=== PATIENT | male | born 2000 | race Two or more races ===

== ENCOUNTER 2024-06-06 20:50 | Emergency (ER) | payer MEDICAID, SELFPAY ==
[2024-06-06 22:14] VITALS: BP 146/93; PULSE 76; RESP 20; TEMP 36.8; O2SAT 99; BMI 31.1
--- NOTE | 2024-06-07 04:17 | EDNOTE_ITS ---
ED General RME/HPI General Chief complaint: General Adult/Misc Complain Stated complaint: NEED BLOOD PRESSURE CHECK Time Seen by Provider: 06/06/24 22:29 Arrival date/time: 06/06/24 20:50 23M with no significant PMH presents to ED wanting to get his blood pressure checked. Patient has no complaints. Limitations: no limitations Related Data Previous Rx's ?Medication ?Instructions ?Recorded acetaminophen 500 mg tablet 1,000 mg (2 x 500 mg) PO Q ID PRN 05/22/22 (Tylenol Extra Strength) fever or pain #30 tabs Allergies Allergy/AdvReac Type Severity Reaction Status Date / Time No Known Allergies Allergy Verified 03/05/22 12:47 Review of Systems Review of Systems Systems Reviewed: All systems reviewed, normal except as documented Constitutional Constitutional: Reports system reviewed and no additional complaints, except as documented, Denies fever(s) and Denies headache(s) ENT Ears, Nose, Mouth, and Throat: Denies disequilibrium and Denies headache(s) Cardiovascular Cardiovascular: Reports system reviewed and no additional complaints, except as documented, Denies chest pain and Denies dyspnea Respiratory Respiratory: Reports system reviewed and no additional complaints, except as documented, Denies cough and Denies dyspnea Gastrointestinal Gastrointestinal: Reports system reviewed and no additional complaints, except as documented, Denies abdominal pain, Denies nausea and Denies vomiting Neurologic Neurologic: Reports system reviewed and no additional complaints, except as documented, Denies confusion, Denies disequilibrium and Denies headache(s) Psychiatric Psychiatric: Denies confusion Past Medical History Past Medical History CARDIAC: Negative Congestive Heart Failure RESPIRATORY: Negative Chronic Obstructive Pulmonary Disease (COPD) GENITOURINARY: Negative Renal Disease ENDOCRINE: Negative Diabetes Mellitus Type 1 or Diabetes Mellitus Type 2 Social History SMOKING STATUS: Current some day smoker ED Exam General Limitations: Present no limitations General appearance: Present alert and in no apparent distress Head Head exam: Present atraumatic Eye Eye exam: Present normal appearance, PERRL and EOMI ENT ENT exam: Present normal exam, normal oropharynx and mucous membranes moist Neck Neck exam: Present normal inspection, full ROM and trachea midline Chest Chest inspection: Present normal inspection and symmetric chest wall rise Respiratory Respiratory exam: Present normal lung sounds bilaterally Cardiovascular Cardiovascular exam: Present regular rate, normal rhythm and normal heart sounds Abdominal Exam Abdominal exam: Present soft and normal bowel sounds Extremities Exam Extremities exam: Present normal inspection and full ROM Back Exam Back exam: Present normal inspection and full ROM Neurological Exam Neurological exam: Present alert, oriented X3 and CN II-XII intact Psychiatric Psychiatric exam: Present normal affect and normal mood Skin Skin exam: Present warm, dry, intact and normal color Course Course Course Narrative: 23M with no significant PMH presents to ED wanting to get his blood pressure checked. Patient has no complaints. Physical exam reveals clear lungs. RRR. Patient is afebrile, calm, and alert. BP mildly elevated. Store Administrative Assistant given. Quality Measures none Vital Signs Vital signs: Vital Signs Temperature 98.2 F 06/06/24 22:14 Pulse Rate 76 06/06/24 22:14 Respiratory Rate 20 06/06/24 22:14 Blood Pressure 146/93 H 06/06/24 22:14 Pulse Oximetry (%) 99 06/06/24 22:14 Oxygen Delivery Method Room Air 06/06/24 22:14 O2 at 99% on RA and WNLs MDM Patient data External records reviewed:: [facility] previous records Clinical information provided by:: patient Social determinants that could affect healthcare access:: none Patient has the following chronic illnesses:: none How is presenting disease/condition affected by chronic disease/condition?: no chronic disease Evaluation data The following diagnostics were reviewed and interpreted by me:: other (specify) (none) Lab and/or radiology exams considered but not ordered:: not ordered Interpretation Summary: n/a Medications Medications considered but not ordered:: not ordered Medication administrations:: n/a Consultations Consultation(s) initiated? (list below): No Diagnosis Differential Diagnosis ED Complaint MDM: health screening, drug use, elevated BP w/o diagnosis of HTN Most likely diagnosis given after review of the tests above:: elevated BP w/o diagnosis of HTN Admission Indicated Admission indicated?: not indicated Explain why admission is indicated or not indicated:: outpatient Admission Request Was there a request for admission?: No Disposition Plan Disposition Plan: Discharge Discharge Attestation Discharge Attestation: The patient and all family members were given an opportunity to ask questions and understood the discharge instructions. Discharge instructions specifically effects, indications for sooner follow up or return to the emergency department, and the expected course of current diagnosis. Patient condition: Stable Medical Decision Making Differential Diagnosis Differential Diagnosis: health screening, drug use, elevated BP w/o diagnosis of HTN Discharge Plan Plan Patient Disposition: HOME (Self Care) Disposition Comment: STable Prescriptions/Referrals Prescriptions/Med Rec: No Action acetaminophen [Tylenol Extra Strength] 500 mg tablet 1,000 mg PO QID PRN (Reason: fever or pain) Qty: 30 0RF Referrals: No Primary/Family,Physician [Primary Care Provider] - In 1 week Problem List Clinical Impression: Elevated BP without diagnosis of hypertension Patient/Caregiver Discharge Instructions Additional Instructions: Please follow-up with PCP within 24-48 hours and return immediately if symptoms worsen. Print Language: Indonesian Stand Alone Forms: Patient Portal Info Letter PA/ADVANCED PRACTICE PROVIDER Supervising Physician DAKOTA/KERA Supervising Physician: Dr. Ravi
== END 2024-06-06 22:40 | disposition home or self-care (01) ==
PROVIDERS: Emergency Provider Emergency Medicine
DX: R03.0 Elevated blood-pressure reading, without diagnosis of hypertension (principal)
CPT/HCPCS: 99281

== ENCOUNTER 2024-06-07 21:10 | Emergency (ER) | payer MEDICAID, SELFPAY ==
[2024-06-07 21:39] VITALS: BP 152/89; PULSE 83; RESP 18; TEMP 36.4; O2SAT 98; BMI 31.2
--- NOTE | 2024-06-08 01:10 | EDNOTE_ITS ---
Upper Respiratory Inf. RME/HPI General Chief Complaint: General Adult/Misc Complain Stated Complaint: WANTS TO BE CHECKED BY DOCTOR Time Seen by Provider: 06/07/24 22:07 Arrival date/time: 06/07/24 21:10 23M with no significant PMH presents to ED with 1 day of cough. Limitations: no limitations Related Data Previous Rx's ?Medication ?Instructions ?Recorded acetaminophen 500 mg tablet 1,000 mg (2 x 500 mg) PO Q ID PRN 05/22/22 (Tylenol Extra Strength) fever or pain #30 tabs Allergies Allergy/AdvReac Type Severity Reaction Status Date / Time No Known Allergies Allergy Verified 03/05/22 12:47 Review of Systems Review of Systems Systems Reviewed: All systems reviewed, normal except as documented Constitutional Constitutional: Reports system reviewed and no additional complaints, except as documented, Denies fever(s) and Denies headache(s) ENT Ears, Nose, Mouth, and Throat: Denies disequilibrium and Denies headache(s) Cardiovascular Cardiovascular: Reports system reviewed and no additional complaints, except as documented, Denies chest pain and Denies dyspnea Respiratory Respiratory: Reports system reviewed and no additional complaints, except as documented, Reports as per HPI, Reports cough and Denies dyspnea Gastrointestinal Gastrointestinal: Reports system reviewed and no additional complaints, except as documented, Denies abdominal pain, Denies nausea and Denies vomiting Neurologic Neurologic: Reports system reviewed and no additional complaints, except as documented, Denies confusion, Denies disequilibrium and Denies headache(s) Psychiatric Psychiatric: Denies confusion Past Medical History Past Medical History CARDIAC: Negative Congestive Heart Failure RESPIRATORY: Negative Chronic Obstructive Pulmonary Disease (COPD) GENITOURINARY: Negative Renal Disease ENDOCRINE: Negative Diabetes Mellitus Type 1 or Diabetes Mellitus Type 2 Social History SMOKING STATUS: Current some day smoker ED Exam General Limitations: Present no limitations General appearance: Present alert and in no apparent distress Head Head exam: Present atraumatic Eye Eye exam: Present normal appearance, PERRL and EOMI ENT ENT exam: Present normal exam, normal oropharynx and mucous membranes moist Neck Neck exam: Present normal inspection, full ROM and trachea midline Chest Chest inspection: Present normal inspection and symmetric chest wall rise Respiratory Respiratory exam: Present normal lung sounds bilaterally Cardiovascular Cardiovascular exam: Present regular rate, normal rhythm and normal heart sounds Abdominal Exam Abdominal exam: Present soft and normal bowel sounds Extremities Exam Extremities exam: Present normal inspection and full ROM Back Exam Back exam: Present normal inspection and full ROM Neurological Exam Neurological exam: Present alert, oriented X3 and CN II-XII intact Psychiatric Psychiatric exam: Present normal affect and normal mood Skin Skin exam: Present warm, dry, intact and normal color Course Quality Measures none Orders Category Date Time Status Bedside Influenza A&B Antigen Test NOW Care 06/07/24 21:15 Completed Vital Signs Vital signs: Vital Signs Temperature 97.6 F 06/07/24 21:39 Pulse Rate 83 06/07/24 21:39 Respiratory Rate 18 06/07/24 21:39 Blood Pressure 152/89 H 06/07/24 21:39 Pulse Oximetry (%) 98 06/07/24 21:39 Oxygen Delivery Method Room Air 06/07/24 21:39 O2 at 98% on RA and WNLs Upper Respiratory Infection MDM Narrative MDM Narrative:: 23M with no significant PMH presents to ED with 1 day of cough. Physical exam reveals clear ENT and lungs. Patient is afebrile, calm, and alert. Flu A+. Patient data External records reviewed:: [facility] previous records Clinical information provided by:: patient Social determinants that could affect healthcare access:: none Patient has the following chronic illnesses:: none How is presenting disease/condition affected by chronic disease/condition?: no chronic disease Evaluation data The following diagnostics were reviewed and interpreted by me:: lab results Lab and/or radiology exams considered but not ordered:: ordered Interpretation Summary: above Medications / Prescriptions Medications or Prescriptions considered but not ordered:: not ordered Medication administrations:: n/a Consultations Consultation(s) initiated? (list below): No Diagnosis Upper Respiratory Differential Diagnosis: upper respiratory infection, croup, otitis media, sinusitis, viral infection, bronchitis, influenza and pharyngitis Most likely diagnosis given after review of the tests above:: flu A Admission Indicated Admission indicated?: not indicated Admission Request Was there a request for admission?: No Disposition Plan Disposition Plan: Discharge Discharge Attestation Discharge Attestation: The patient and all family members were given an opportunity to ask questions and understood the discharge instructions. Discharge instructions specifically effects, indications for sooner follow up or return to the emergency department, and the expected course of current diagnosis. Patient condition: Stable Discharge Plan Plan Patient Disposition: HOME (Self Care) Disposition Comment: Stable Prescriptions/Referrals Prescriptions/Med Rec: No Action acetaminophen [Tylenol Extra Strength] 500 mg tablet 1,000 mg PO QID PRN (Reason: fever or pain) Qty: 30 0RF Referrals: No Primary/Family,Physician [Primary Care Provider] - In 1 week Problem List Clinical Impression: Influenza A Patient/Caregiver Discharge Instructions Education Materials: ED Influenza (Adult) Additional Instructions: Please follow-up with PCP within 24-48 hours and return immediately if symptoms worsen. Ibuprofen/Tylenol can be used simultaneously for greater fever/pain control. Benadryl is good for cough, congestion, and sleep. Print Language: Cymraes Stand Alone Forms: Patient Portal Info Letter PA/RESIDENTIAL BUILDER Supervising Physician PA/RESIDENTIAL BUILDER Supervising Physician: Dr. Ayers
== END 2024-06-07 22:56 | disposition home or self-care (01) ==
PROVIDERS: Emergency Provider Emergency Medicine
DX: J10.1 Influenza due to other identified influenza virus with other respiratory manifestations (principal); F17.200 Nicotine dependence, unspecified, uncomplicated
CPT/HCPCS: 87400; 99283

== ENCOUNTER 2024-06-09 19:05 | Emergency (ER) | payer MEDICAID, SELFPAY ==
[2024-06-09 19:11] VITALS: PULSE 85; RESP 19; O2SAT 99
[2024-06-09 19:17] VITALS: BP 161/96; PULSE 93; RESP 19; TEMP 36.8; O2SAT 100; BMI 27.1
--- NOTE | 2024-06-09 19:20 | EDNOTE_ITS ---
ED Psych RME/HPI General Chief Complaint: Psychiatric Symptoms Stated Complaint: PSYCH EVAL Time Seen by Provider: 06/09/24 19:20 Arrival date/time: 06/09/24 19:05 RME / HPI RME / HPI Narrative: This section includes all my notes and documentations, including HPI, PE, and ED course. David Ayers MD HPI: 23-year-old male here seeking mental evaluation. Has history of schizophrenia. Noncompliant with treatment. Was found wandering the streets. called EMS who brought the patient here. When asked with questions, patient doesn't give answers to most questions. He mainly stares at you and elsewhere. He reported to thoughts of hurting himself. He denied thoughts of hurting others. He reported auditory hallucinations. No other obvious complaints. ROS: All negative except as documented in HPI. Physical Exam: General: Alert. Flat affect noted. Eyes: Conjunctivae and lids clear. EOMI. PERRL. ENT: No nasal congestion. Neck: Supple. Heart: RRR. Lungs: No respiratory distress. Good air movement. No rhonchi, wheezing, rales. Abdomen: Soft and nontender. Skin: Warm and dry. Neuro: Alert and oriented X 1. Cranial Nerves II-XII grossly intact. No peripheral motor deficits. Musculoskeletal: All major joints and bones are not tender with no limited ROM. Blood tests and urine tests unremarkable. At this point, diagnoses include psychosis and suicidal ideation. Patient is medically cleared for psychiatric evaluation and treatment. At 6 AM on 06/10/2024, the care of the patient was transferred to Dr Hodgson. David Ayers MD Related Data Previous Rx's ?Medication ?Instructions ?Recorded acetaminophen 500 mg tablet 1,000 mg (2 x 500 mg) PO Q ID PRN 05/22/22 (Tylenol Extra Strength) fever or pain #30 tabs Allergies Allergy/AdvReac Type Severity Reaction Status Date / Time No Known Allergies Allergy Verified 03/05/22 12:47 Course Quality Measures none Orders Category Date Time Status 1799 Psychiatric Hold NOW Care 06/09/24 19:30 Ordered Acetaminophen Stat Lab 06/09/24 20:14 Completed Alcohol, Blood Medical Stat Lab 06/09/24 20:14 Completed CBC Stat Lab 06/09/24 20:14 Completed CMP [Comprehensive Metabolic Panel] Stat Lab 06/09/24 20:14 Completed Drug Screen,Urine Stat Lab 06/09/24 19:44 Completed Magnesium Stat Lab 06/09/24 20:14 Completed Salicylate Stat Lab 06/09/24 20:14 Completed TSH [Thyroid Stimulating Hormone] Stat Lab 06/09/24 20:14 Completed Referral Guest Relations Manager NOW 06/09/24 19:20 Active Vital Signs Vital signs: Vital Signs Temperature 98.3 F 06/09/24 19:17 Pulse Rate 93 06/09/24 19:17 Respiratory Rate 19 06/09/24 19:17 Blood Pressure 161/96 H 06/09/24 19:17 Pulse Oximetry (%) 100 06/09/24 19:17 Oxygen Delivery Method Room Air 06/09/24 19:17 Psych Patient data External records reviewed:: [facility] previous records Clinical information provided by:: patient and EMS Social determinants that could affect healthcare access:: mental health Patient has the following chronic illnesses:: Schizophrenia How is presenting disease/condition affected by chronic disease/condition?: exacerbated by Evaluation data The following diagnostics were reviewed and interpreted by me:: lab results Lab and/or radiology exams considered but not ordered:: None Interpretation Summary: Normal lab tests Medications / Prescriptions Medications or Prescriptions considered but not ordered:: None Medication administrations:: None Consultations Consultation(s) initiated? (list below): Yes Consultation #1 (Physician, Specialty, Details): Entered order for evaluation by our ED skin care technician. Diagnosis Psych Differential Diagnosis: acute psychosis, chronic schizophrenia, suicidal ideation, bipolar disorder, depression, drug-induced psychotic disorder and acute anxiety Most likely diagnosis given after review of the tests above:: Psychosis and suicidal ideation Admission Indicated Admission indicated?: not indicated Explain why admission is indicated or not indicated:: No psychiatric service here. Admission Request Was there a request for admission?: No Disposition Plan Disposition Plan: other (specify) (Care of the patient was transferred to Dr. Hodgson. ) Discharge Plan Prescriptions/Referrals Prescriptions/Med Rec: No Action acetaminophen [Tylenol Extra Strength] 500 mg tablet 1,000 mg PO QID PRN (Reason: fever or pain) Qty: 30 0RF Referrals: No Primary/Family,Physician [Primary Care Provider] - In 1 week Problem List Clinical Impression: Acute psychosis, Suicidal ideation Patient/Caregiver Discharge Instructions Print Language: Vietnamese
[2024-06-09 20:27] LABS: Basophils # (Auto) 0.1 Thou/mm3 (0.0-0.2); Basophils % (Auto) 1 % (0-2.5); Eosinophils # (Auto) 0.4 Thou/mm3 (0.0-0.5); Eosinophils % (Auto) 3 % (0-10); Hematocrit 37.5 % (41.0-53.0); Hemoglobin 12.5 g/dL (13.5-16.0); Immature Granulocytes % (Auto) 0 % (0-0); Immature Granulocytes Auto 0.03 Thou/mm3 (0.00-0.00); Lymphocytes # (Auto) 2.2 Thou/mm3 (1.0-4.8); Lymphocytes % (Auto) 19 % (10-50); Mean Corpuscular HGB Conc 33.3 g/dl (31.0-37.0); Mean Corpuscular Hemoglobin 26.9 pg (25.0-35.0); Mean Corpuscular Volume 81 fL (80-100); Monocytes # (Auto) 1.1 Thou/mm3 (0.0-0.8); Monocytes % (Auto) 10 % (0-12); Neutrophils # (Auto) 7.6 Thou/mm3 (1.8-7.7); Neutrophils % (Auto) 67 % (37-80); Nucleated Red Blood Cell % 0 /100 WBC (0); Platelet Count 368 Thou/mm3 (140-440); RDW Standard Deviation 39.4 fL (35.1-43.9); Red Blood Count 4.65 Miln/mm3 (4.50-5.90); White Blood Count 11.3 Thou/mm3 (3.8-10.6)
[2024-06-09 20:44] LABS: Amphetamine/Methamp Scrn,U Negative (Negative); Barbiturate Screen,Urine Negative (Negative); Benzodiazepines Screen,Urine Negative (Negative); Benzoylecgonine Screen, Ur Negative (Negative); Fentanyl Screen,Urine Negative (Negative); Opiate Screen,Urine Negative (Negative); THC Screen,Urine Negative (Negative)
[2024-06-09 20:59] LABS: Acetaminophen < 2.0 mcg/mL (10.0-20.0); Alanine Aminotransferase 21 U/L (10-49); Albumin, Serum 4.1 gm/dL (3.5-5.0); Albumin/Globulin Ratio 1.6 (1.2-2.2); Alcohol, Blood Medical < 3.0 mg/dL (0-10.0); Alkaline Phosphatase 61 U/L (46-116); Anion Gap 8 (7-16); Aspartate Amino Transferase 23 U/L (0-34); BUN/Creatinine Ratio 19 Ratio (12-20); Bilirubin,Total 0.4 mg/dL (0.3-1.2); Blood Urea Nitrogen 19 mg/dL (9-23); Calcium 9.6 mg/dL (8.3-10.6); Calcium (Corrected) 9.6 mg/dL (8.5-10.1); Carbon Dioxide 29.8 mMol/L (20.0-31.0); Chloride 105 mMol/L (98-107); Estimated Creatinine Clearance 126.1 mL/min (>60); Globulin 2.6 gm/dL (2.3-3.5); Glucose 94 mg/dL (74-106); Osmolality,Calculated 287 (275-295); Potassium 3.9 mMol/L (3.4-5.1); Salicylate < 3.0 mg/dL; Sodium 143 mMol/L (136-145); Thyroid Stimulating Hormone 0.78 uIU/mL (0.55-4.78); Total Protein 6.7 gm/dL (5.7-8.2); eGFR > 60 See Note
[2024-06-09 22:55] VITALS: BP 125/76; PULSE 64; RESP 17; TEMP 37; O2SAT 97
--- NOTE | 2024-06-10 05:53 | PD.EDADDENDU ---
Emergency Room Addendum <Sayda Billings - Last Filed: 06/10/24 12:22> Addendum Narrative: 0600: Care assumed from Dr. Ayers, the previous shift emergency physician. Past medical, surgical, social and family history reviewed. Vitals and home medications reviewed. I will assume the care of the patient at this time. Please refer to the emergency department record for history and examination from initial visit.? Physical exam by me shows patient under no acute distress at this time. Patient slept comfortably throughout the night is waiting for mental health evaluation. Per sign out the patient has history of schizophrenia and suicidal thoughts and was not taking medications. Previous doctor 1799 held and medically cleared the patient. Labs were reviewed and essentially are negative. The patient was placed in ED observation care at 06/10/2024 at 0600 hours. The patient was placed in ED observation care because of undifferentiated decompensated behavioral health evaluation, no behavioral health bed available. The patients past medical history, social history, and family history were reviewed. The plan of care will include serial examinations. While in ED observation the patient will have access to water, food, and personal hygiene. If the patient takes home medication(s), they will be continued in ED observation. 0738: Upon mental health evaluation, patient will be placed on a 5150-hold for [facility]. Patient's 1799 will be credited. Plan is for LPS Facility placement. 1040: Patient has been accepted to [facility]. ETA is 1200 hours. 1210: EMS here to transport the patient to [facility]. ED observation ended care at 06/10/2024 at 1210 hours. <Blaise Hodgson MD - Last Filed: 06/10/24 14:05> Addendum Narrative: 0600: Care assumed from Dr. Ayers, the previous shift emergency physician. Past medical, surgical, social and family history reviewed. Vitals and home medications reviewed. I will assume the care of the patient at this time. Please refer to the emergency department record for history and examination from initial visit.? Physical exam by me shows patient under no acute distress at this time. Patient slept comfortably throughout the night is waiting for mental health evaluation. Per signout the patient has history of schizophrenia and suicidal thoughts and was not taking medications. Previous doctor 1799 held and medically cleared the patient. Labs were reviewed and essentially are negative.
[2024-06-10 06:11] VITALS: BP 146/75; PULSE 74; RESP 18; TEMP 37.7; O2SAT 98
--- NOTE | 2024-06-10 07:40 | PC.CC ---
Addendum entered by Luisa Prescott 06/10/24 08:36: Patient was provided with Advisement of 5150-Hold and placement to psychiatric facility. Original Note: Patient is a 23 year-old male BIBA for mental health evaluation after being found wandering the streets. ASW, Luisa made face to face contact with patient introduced self, role, and reason to patient. Patient presented unkempt and disheveled with dirty all over his feet. Patient appeared to be alert to self and location. However, patient appeared to be responding to internal stimuli. Patient is a poor historian. Patient reports that the police dropped him off on the streets yesterday but unable to articulate the reason he was dropped off. Patient reports to having auditory and visual hallucinations. ASW explored with patient what he hears and sees. Patient stated, I hear and see a bunch of random stuff. Per patient, he was diagnosed with Schizophrenia but unable to provide who diagnosed him and when he was diagnosed. Patient reports he use to take medication but has stopped and only able to provide that he was taking Gabapentin as he does not remember the name of the other medications. Patient does not know if he is connected to outpatient mental health services. Patient was placed on a 5150-hold a while ago. Patient stated, I was trying to go to the mental health hospital to get help for my mental health. Patient reports he was in foster care and there is no one to contact for collateral information. Upon clinical consultation with [facility], [facility] patient will be placed on a 5150-hold for [facility]. Patient's 1798 will be credited. ASW provided update of discharge plan to [facility] Facility to Dr. Hodgson and college hire Betty. ASW to send referral packet to [facility] facilities via [facility].
[2024-06-10 08:34] VITALS: BP 124/70; PULSE 89; RESP 18; TEMP 37.3; O2SAT 98
--- NOTE | 2024-06-10 09:02 | PC.NURSE ---
kadeem called from [facility] for follow up report on pt condition
--- NOTE | 2024-06-10 09:15 | PC.NURSE ---
--Spoke with Pranay from [facility] with accepting info. Dr. Brewster accepted, can go anytime, nurse to nurse report [phone], will fax covid resutls to [phone].
--- NOTE | 2024-06-10 09:37 | PC.CC ---
PAtient was accepted to [facility], Dr. Brewster. Pranay provided accepting information. ASW to arrange transportation. ASW provided accepting information to patient. Dr. Hodgson, ROSELIA Sutherland were made aware of discharge plan to [facility] facility in [place].
[2024-06-10 10:32] VITALS: BP 124/69; PULSE 94; RESP 16; TEMP 37.2; O2SAT 99
[2024-06-10 11:58] VITALS: BP 151/90; PULSE 72; RESP 17; TEMP 36.7; O2SAT 96
[2024-06-10 11:59] VITALS: BP 151/90; PULSE 67; RESP 16; TEMP 36.7; O2SAT 96
--- NOTE | 2024-06-10 12:11 | PC.NURSE ---
REPORT GIVEN TO SUE VELOZ AT [facility] AT THIS TIME, BEDSIDE REPORT GIVEN TO EMS.
== END 2024-06-10 12:23 ==
PROVIDERS: Emergency Medicine; Emergency Provider Emergency Medicine
DX: R45.851 Suicidal ideations (principal); F20.9 Schizophrenia, unspecified
CPT/HCPCS: 36415; 80053; 80307; 80320; 80329; 83735; 84443; 85025; 87811; 90839; 96127; 99285; G0480

== ENCOUNTER 2024-09-18 18:50 | Emergency (ER) | payer MEDICAID, SELFPAY ==
[2024-09-18 20:00] VITALS: BP 122/82; PULSE 100; RESP 20; TEMP 36.9; O2SAT 96
--- NOTE | 2024-09-18 20:23 | PD.EDRME ---
Rapid Medical Screening Exam RME Arrival date/time: 09/18/24 18:50 23M with history of psych presents to ED wanting to talk to crisis. Patient denies SI/HI. Patient states he doesn't feel good after taking some unknown med. Chief Complaint: General Adult/Misc Complain Vital signs: Vital Signs Temperature 98.4 F 09/18/24 20:00 Pulse Rate 100 09/18/24 20:00 Respiratory Rate 20 09/18/24 20:00 Blood Pressure 122/82 09/18/24 20:00 Pulse Oximetry (%) 96 09/18/24 20:00 Oxygen Delivery Method Room Air 09/18/24 20:00
--- NOTE | 2024-09-18 20:29 | PC.NURSE ---
AFTER SEEN BY PROVIDER AND REGISTRATION PT TOOK OFF ER.
== END 2024-09-18 20:30 | disposition left against medical advice (07) ==
PROVIDERS: Emergency Provider Emergency Medicine
DX: Z00.8 Encounter for other general examination (principal); Z53.29 Procedure and treatment not carried out because of patient's decision for other reasons
CPT/HCPCS: 80053; 80307; 80320; 80329; 85025; 99281; G0480

== ENCOUNTER 2024-09-20 12:57 | Emergency (ER) | payer MEDICAID, SELFPAY ==
[2024-09-20 12:58] VITALS: BMI 29.5
[2024-09-20 13:12] VITALS: BP 124/85; PULSE 98; RESP 17; TEMP 37.1; O2SAT 98
--- NOTE | 2024-09-20 13:22 | PD.EDRME ---
Rapid Medical Screening Exam E Arrival date/time: 09/20/24 12:57 23-year-old male with no known medical history presents to the emergency room with a chief complaint of auditory and visual hallucinations, anxiety, depression x 1 day. Patient states he would like to see mental health. Patient denies any suicidal or homicidal ideation I have greeted and performed a focused initial assessment of this patient. A comprehensive ED assessment and evaluation of the patient, analysis of all test results, and completion of the medical decision making process will be conducted by additional ED providers. Chief Complaint: Psychiatric Symptoms Vital signs: Vital Signs Temperature 98.7 F 09/20/24 13:12 Pulse Rate 98 09/20/24 13:12 Respiratory Rate 17 09/20/24 13:12 Blood Pressure 124/85 H 09/20/24 13:12 Pulse Oximetry (%) 98 09/20/24 13:12 Oxygen Delivery Method Room Air 09/20/24 13:12 Vital signs reviewed by provider: Yes
[2024-09-20 13:35] LABS: Collection Type, Urine Clean Catch
[2024-09-20 13:42] LABS: Bacteria,Urine Rare; Bilirubin,Urine 1+ (Negative); Blood,Urine Negative (Negative); Color,Urine Yellow (Lt Yel-Yel); Culture Indicated,Urine Not Indicated; Glucose, Urine Negative (Negative); Hyaline Casts,Urine 1 /hpf (0-1); Ketones,Urine Negative (Negative); Leukocyte Esterase,Urine Negative (Negative); Nitrite,Urine Negative (Negative); PH,Urine 5.5 (5.0-7.0); Protein,Urine 1+ (Neg - Trace); RBC,Urine 6 /hpf (0-3); Specific Gravity,Urine 1.029 (1.001-1.035); Squamous Epithelial Cell,Urine 1 /hpf (0-5); Urobilinogen,Urine 2.0 mg/dL (0.0-1.0); WBC,Urine 5 /hpf (0-5)
[2024-09-20 13:46] LABS: Amphetamine/Methamp Scrn,U Negative (Negative); Barbiturate Screen,Urine Negative (Negative); Benzodiazepines Screen,Urine Negative (Negative); Benzoylecgonine Screen, Ur Negative (Negative); Fentanyl Screen,Urine Negative (Negative); Opiate Screen,Urine Negative (Negative); THC Screen,Urine Negative (Negative)
[2024-09-20 13:49] LABS: Clarity,Urine Hazy (Clear/Hazy)
[2024-09-20 14:05] LABS: Basophils # (Auto) 0.1 Thou/mm3 (0.0-0.2); Basophils % (Auto) 1 % (0-2.5); Eosinophils # (Auto) 0.1 Thou/mm3 (0.0-0.5); Eosinophils % (Auto) 2 % (0-10); Hematocrit 43.1 % (41.0-53.0); Hemoglobin 14.6 g/dL (13.5-16.0); Immature Granulocytes Auto 0.02 Thou/mm3 (0.00-0.00); Lymphocytes # (Auto) 1.7 Thou/mm3 (1.0-4.8); Lymphocytes % (Auto) 25 % (10-50); Mean Corpuscular HGB Conc 33.9 g/dl (31.0-37.0); Mean Corpuscular Hemoglobin 26.4 pg (25.0-35.0); Mean Corpuscular Volume 78 fL (80-100); Monocytes # (Auto) 0.5 Thou/mm3 (0.0-0.8); Monocytes % (Auto) 8 % (0-12); Neutrophils # (Auto) 4.4 Thou/mm3 (1.8-7.7); Neutrophils % (Auto) 65 % (37-80); Nucleated Red Blood Cell # 0.00 Thou/mm3 (0.00-0.00); Nucleated Red Blood Cell % 0 /100 WBC (0); Platelet Count 305 Thou/mm3 (140-440); RDW Standard Deviation 38.0 fL (35.1-43.9); Red Blood Count 5.52 Miln/mm3 (4.50-5.90); White Blood Count 6.8 Thou/mm3 (3.8-10.6)
[2024-09-20 14:27] LABS: Alanine Aminotransferase 23 U/L (10-49); Albumin, Serum 4.9 gm/dL (3.5-5.0); Albumin/Globulin Ratio 1.7 (1.2-2.2); Alkaline Phosphatase 63 U/L (46-116); Anion Gap 8 (7-16); Aspartate Amino Transferase 20 U/L (0-34); BUN/Creatinine Ratio 12 Ratio (12-20); Bilirubin,Total 1.2 mg/dL (0.3-1.2); Blood Urea Nitrogen 15 mg/dL (9-23); Calcium 10.1 mg/dL (8.3-10.6); Calcium (Corrected) 10.1 mg/dL (8.5-10.1); Carbon Dioxide 24.1 mMol/L (20.0-31.0); Chloride 103 mMol/L (98-107); Creatinine (Component) 1.3 mg/dL (0.6-1.3); Estimated Creatinine Clearance 113.8 mL/min (>60); Globulin 2.9 gm/dL (2.3-3.5); Glucose 93 mg/dL (74-106); Osmolality,Calculated 270 (275-295); Potassium 3.8 mMol/L (3.4-5.1); Sodium 135 mMol/L (136-145); Total Protein 7.8 gm/dL (5.7-8.2); eGFR > 60 See Note
--- NOTE | 2024-09-20 15:08 | PC.CC ---
Patient is a 23-year-old male who presents to the hospital for a voluntary mental health evaluation. MYRNA Shearer requested a psych evaluation due to patient having active hallucination and requesting a mental health evaluation. ASWLuisa made face to face contact with patient introduced self, role, and reason for visit. Patient presents as alert and oriented to self and location. ASW disclosed limits of confidentiality as well. Patient made appropriate eye contact. Patient?s thought process was disorganized, delusional, and made multiple bizarre statements. Patient presented unkempt, disheveled, and malodourous. Patient was a poor historian. His clothing was unkempt with dirt throughout his clothing. Patient was unable to provide information as to him being homeless or what his current living situation is. Patient reports that he is here because she was sent by the clinic but was unable to articulate which clinic. Patient then reported that he is here because he needs to go to a psychiatric hospital because he needs help. Patient reports he does not know if he is homeless but he does not feel safe. Patient reports that there are people following him but was unable to provide details as to who was following him and the reason. At the time of encounter patient is denying suicidal and homicidal ideations. Patient reports to actively having auditory hallucinations and reports that the voices are telling him things that they are not supposed to be telling him. Patient denying visual hallucinations. Patient reports he does not want to speak about past suicide attempts. Patient reports he has been placed on a 5150-hold in the past but does not recall when or where. Upon chart review patient was placed on a 5150-hold on 06/10/2024 for Gravely Disabled. Patient is not connected to outpatient mental health services but reports to having a history of Schizophrenia. Patient reports he is not compliant with psychotropic medication. Patient reports he is able to ambulate independently and complete his own ADLs. ASW attempted to get collateral information from a family member or friend for the patient. Patient reports he has no one to get collateral from. Patient?s toxicology was negative. Patient scored low-risk on the Stanly Screening completed by this fiction and nonfiction prose writer. Upon clinical consultation with LOAD PLANNER, Rachel House patient will be placed on a 5150-hold for Gravely Disabled. Patient is not compliant with outpatient mental health services and psychotropic medications. Patient is actively having auditory hallucinations. Presents unkempt and disheveled. Patient is unable to meet his own basic needs and care for self. Patient does not remember the last time he showered. VIVEK provided patient with sandwich and water. Luisa DOYLE provided 5150-hold advisement to patient and patient?s mental health rights handbook. Luisa DOYLE provided update discharge plan to LPS facility to Dr. Lord, MYRNA Shearer, and taxi servicer Lynne. DMITRYW to send referral to LPS facilities via [employer].
--- NOTE | 2024-09-20 15:44 | PC.CC ---
Patient was accpeted to [facility], Dr. Ordonez unit 3, accepting information was provided by ASW provided accepting information to Dr. Lord, MYRNA Shearer, and Charge Alicia. DOYLE to arrange transportation with [facility].
[2024-09-20 17:54] VITALS: BP 116/76; PULSE 81; RESP 18; TEMP 36.7; O2SAT 99
[2024-09-20 19:43] VITALS: BP 123/86; PULSE 99; RESP 20; TEMP 36.5; O2SAT 97
--- NOTE | 2025-01-06 10:25 | EDNOTE_ITS ---
ED General RME/HPI General Chief complaint: Psychiatric Symptoms Stated complaint: AUDIBLE HALLUCINATIONS Arrival date/time: 09/20/24 12:57 Limitations: no limitations RME / HPI RME / HPI narrative: 09/20/24 12:57 23-year-old male with no known medical history presents to the emergency room with a chief complaint of auditory and visual hallucinations, anxiety, depression x 1 day. Patient states he would like to see mental health. Patient denies any suicidal or homicidal ideation I have greeted and performed a focused initial assessment of this patient. A comprehensive ED assessment and evaluation of the patient, analysis of all test results, and completion of the medical decision making process will be conducted by additional ED providers. Onset (ago): day(s) Severity: moderate Severity scale (1-10): 8 Quality: other Consistency: constant Relieving factors: none Exacerbating factors: other Associated symptoms: denies other symptoms Related Data Previous Rx's ?Medication ?Instructions ?Recorded acetaminophen 500 mg tablet 1,000 mg (2 x 500 mg) PO Q ID PRN 05/22/22 (Tylenol Extra Strength) fever or pain #30 tabs Allergies Allergy/AdvReac Type Severity Reaction Status Date / Time No Known Allergies Allergy Verified 09/20/24 13:01 Review of Systems Review of Systems Systems Reviewed: All systems reviewed, normal except as documented Past Medical History Past Medical History CARDIAC: Negative Congestive Heart Failure RESPIRATORY: Negative Chronic Obstructive Pulmonary Disease (COPD) GENITOURINARY: Negative Renal Disease ENDOCRINE: Negative Diabetes Mellitus Type 1 or Diabetes Mellitus Type 2 Social History SMOKING STATUS: Current some day smoker ED Exam General Limitations: Present no limitations General appearance: Present alert and in no apparent distress Head Head exam: Present atraumatic Eye Eye exam: Present normal appearance, PERRL and EOMI ENT ENT exam: Present normal exam, normal oropharynx and mucous membranes moist Neck Neck exam: Present normal inspection, full ROM and trachea midline Chest Chest inspection: Present normal inspection and symmetric chest wall rise Respiratory Respiratory exam: Present normal lung sounds bilaterally Cardiovascular Cardiovascular exam: Present regular rate, normal rhythm and normal heart sounds Abdominal Exam Abdominal exam: Present soft and normal bowel sounds Extremities Exam Extremities exam: Present normal inspection and full ROM Back Exam Back exam: Present normal inspection and full ROM Neurological Exam Neurological exam: Present alert, oriented X3 and CN II-XII intact Psychiatric Psychiatric exam: Present depressed and anxious Skin Skin exam: Present warm, dry, intact and normal color Course Quality Measures none Orders Category Date Time Status Consult Smoking Pipe Repairer X1 Care 09/20/24 13:22 Completed Consult to Psychologist Routine Cons 09/20/24 Ordered CBC Stat Lab 09/20/24 13:52 Completed CMP [Comprehensive Metabolic Panel] Stat Lab 09/20/24 13:52 Completed Drug Screen,Urine Stat Lab 09/20/24 13:26 Completed UA, C/S IF [Urinalysis, C/S if Indicated] Stat Lab 09/20/24 13:26 Completed Late Tray Request Routine Oth 09/20/24 18:39 Active Vital Signs Vital signs: Vital Signs Temperature 98.7 F 09/20/24 13:12 Pulse Rate 98 09/20/24 13:12 Respiratory Rate 17 09/20/24 13:12 Blood Pressure 124/85 H 09/20/24 13:12 Pulse Oximetry (%) 98 09/20/24 13:12 Oxygen Delivery Method Room Air 09/20/24 13:12 Discharge Plan Plan Patient Disposition: [facility] Patient condition on transfer: Stable Prescriptions/Referrals Prescriptions/Med Rec: No Action acetaminophen [Tylenol Extra Strength] 500 mg tablet 1,000 mg PO QID PRN (Reason: fever or pain) Qty: 30 0RF Referrals: No Primary/Family,Physician [Primary Care Provider] - In 1 week Problem List Clinical Impression: Depression, Acute anxiety, Hallucination Patient/Caregiver Discharge Instructions Discharge Activity: activity as tolerated Education Materials: Depression and the Brain's ... Print Language: German Stand Alone Forms: Kiana Award Info., Patient Portal Info Letter MDM Clinical Information Provided by: patient Medical Records reviewed [facility] EKG EKG not done Labs Labs: interpreted by me Lab(s) Interpretation(s): medical screening labs ok Diagnosis Differential Diagnosis ED Complaint MDM: Depression, anxiety, schizophrenia
== END 2024-09-20 19:45 | disposition short-term general hospital (02) ==
PROVIDERS: Nurse Practitioner Family; Emergency Provider Family Medicine
DX: Z00.8 Encounter for other general examination (principal); F41.9 Anxiety disorder, unspecified; R44.1 Visual hallucinations; F32.A Depression, unspecified; Z75.1 Person awaiting admission to adequate facility elsewhere
CPT/HCPCS: 36415; 80053; 80307; 81001; 85025; 96127; 99285

== ENCOUNTER 2024-11-06 13:23 | Emergency (ER) | payer MEDICAID, SELFPAY ==
[2024-11-06] VITALS (7 sets, daily range): BP systolic 92–146; BP diastolic 36–75; PULSE 80–110; RESP 11–18; TEMP 36.5–37.1; O2SAT 97–100; BMI 28.5
--- NOTE | 2024-11-06 13:28 | EKG_ITS ---
[facility] Test Date: 2024-11-06 Pat Name: NIKKO JAUREGUI Department: Room: - Gender: Male Consignee: : [id number] Requested By: Russ Sales Order Number: [id number] Reading MD: Russ Sales Measurements Intervals [place] Rate: 116 P: 66 ME: 141 QRS: 30 QRSD: 94 T: 46 QT: 320 QTc: 445 Interpretive Statements SINUS TACHYCARDIA ABNORMAL RHYTHM ECG No previous ECG available for comparison /[id number]/S0/[id number].pdf
--- NOTE | 2024-11-06 13:28 | XR_ITS ---
Examination: AP chest single view Technique one AP upright portable chest single view Date and time: November 06, 2024 1412 hours INDICATIONS: Shortness of breath today. FINDINGS: Normal heart size. Lungs are clear. The osseous structures are intact. IMPRESSION: No active disease.
--- NOTE | 2024-11-06 13:30 | PD.EDADULT ---
ED General RME/HPI General Chief complaint: Altered Mental Status Stated complaint: AMS Time Seen by Provider: 11/06/24 13:27 Arrival date/time: 11/06/24 13:23 RME / HPI RME / HPI narrative: 23-year-old male with past medical history of psychiatric disorders comes into the ED brought in by ambulance due to being more lethargic and somnolent ROSAURA. Per EMS [facility] and was outside and was found to be more lethargic and somnolent. Patient also was hypotensive on the way therefore was started on IV fluids. On my assessment patient was able to tell me his name and denied taking any drugs. Stated that he took his psychiatric medications only. He was very somnolent and drowsy throughout the whole assessment and cannot provide much history. Related Data Previous Rx's ?Medication ?Instructions ?Recorded acetaminophen 500 mg tablet 1,000 mg (2 x 500 mg) PO QID PRN 05/22/22 (Tylenol Extra Strength) fever or pain #30 tabs Allergies Allergy/AdvReac Type Severity Reaction Status Date / Time No Known Allergies Allergy Verified 09/20/24 13:01 Review of Systems Review of Systems ROS Unobtainable: unobtainable due to mental status Past Medical History Past Medical History CARDIAC: Negative Congestive Heart Failure RESPIRATORY: Negative Chronic Obstructive Pulmonary Disease (COPD) GENITOURINARY: Negative Renal Disease ENDOCRINE: Negative Diabetes Mellitus Type 1 or Diabetes Mellitus Type 2 Social History SMOKING STATUS: Current some day smoker ED Exam Narrative Physical exam: Gen: A&O X 1 (only to name), not able to provide history, very somnolent and lethargic, cannot maintain conversation with communicate appropriately HEENT: NCAT, EOMI, Pupils reactive DEEP, but with pinpoint, not icteric. External ears normal. No rhinorrhea. Moist mucous membranes, some debris was seen in the mouth Neck: Supple, full range of motion, no observable masses, No meningeal sign. Lungs: No Respiratory distress, clear bilateral, protecting the airway initially. CV: Tachycardic, no murmurs. Abdomen: Soft, nondistended, No rebound tenderness. MSK: No joint swelling, no redness, peripheral pulses presents, lumbar with no edema. Skin: No rashes, petechiae, lesions. Neuro: Was moving all extremities, was withdrawing to pain, was very lethargic even though was able to wake up briefly when talked to, but not able to respond to any questioning or communicate appropriately. Psych: Flat affect Course Quality Measures none Orders Category Date Time Status Bedside Blood Glucose NOW Care 11/06/24 15:29 Active COVID-19 Screening Questionnaire NOW Care 11/06/24 16:45 Active Electronic Equipment Set Up Operator Q4H START 00 Care 11/06/24 13:28 Active Continuous Pulse Oximetry NOW Care 11/06/24 13:28 Completed EKG (ED ONLY) *Do not use* NOW Care 11/06/24 13:28 Completed EKG (ED ONLY) *Do not use* NOW Care 11/06/24 15:29 Completed In and Out Catheter NEEDED Care 11/06/24 15:29 Completed Insert IV NOW Care 11/06/24 13:30 Active NIH Stroke Scale now Care 11/06/24 15:29 Active NPO NOW Care 11/06/24 15:29 Active Neuro Check Q4H Care 11/06/24 15:29 Active Nurse Swallow Screen x1 Care 11/06/24 15:29 Active Consult to Neurology / Tele-Neurology Routine Cons 11/06/24 15:29 Active Referral - Harpsichord Maker Stat Cons 11/06/24 16:[address] angio stroke protocol Stat Exams 11/06/24 15:[address] head/brain wo con Stat Exams 11/06/24 13:46 Completed CXRP [XR chest 1V portable] Stat Exams 11/06/24 13:28 Completed EKG (ED Only) Stat Exams 11/06/24 13:28 Draft EKG (ED Only) Stat Exams 11/06/24 15:29 Ordered ABG [Arterial Blood Gas] Stat Lab 11/06/24 14:58 Completed Alcohol, Urine Stat Lab 11/06/24 16:11 Completed CBC [CBC] Stat Lab 11/06/24 13:50 Completed CMP [Comprehensive Metabolic Panel] Stat Lab 11/06/24 13:50 Completed Drug Screen,Urine Stat Lab 11/06/24 16:11 Received Lactic Acid [Lactate (Lactic Acid)] Stat Lab 11/06/24 13:50 Completed Lactic Acid, 3 HR Stat Lab 11/06/24 17:57 Completed Magnesium Stat Lab 11/06/24 13:50 Completed Partial Thromboplastin Time Stat Lab 11/06/24 14:05 Completed Procalcitonin Stat Lab 11/06/24 13:50 Completed Prothrombin Time with INR Stat Lab 11/06/24 14:05 Completed Syphilis Stat Lab 11/06/24 13:50 Completed Troponin I Stat Lab 11/06/24 13:50 Completed UA [Urinalysis] Stat Lab 11/06/24 16:11 Completed Urine Culture Stat Lab 11/06/24 16:11 Received Aspirin Supp Med 11/06/24 15:28 Discontinued 300 mg [place] X1 ONE Dextrose 5%-Water [D5w] 498 ml Med 11/06/24 13:45 Discontinued NALOXONE INJ (Syringe) [Narcan Inj (Syringe)] 1 mg IV 10 mls/hr Dextrose 5%-Water [D5w] 498 ml Med 11/06/24 13:52 Discontinued NALOXONE INJ (Syringe) [Narcan Inj (Syringe)] 1 mg IV 10 mls/hr Dextrose 5%-Water [D5w] 498 ml Med 11/06/24 13:58 Discontinued NALOXONE INJ (Syringe) [Narcan Inj (Syringe)] 1 mg IV 10 mls/hr Labetalol IV [Trandate IV] Med 11/06/24 15:28 Active 10 mg IVP Q15M PRN Magnesium Sulfate 2 GM Ivpb [Magnesium Sulfate Ivpb] Med 11/06/24 14:59 Discontinued 2 gm in 50 ml IV X1 NALOXONE INJ (Syringe) [Narcan Inj (Syringe)] Med 11/06/24 13:31 Discontinued 1 mg IV X1 ONE NALOXONE INJ (Syringe) [Narcan Inj (Syringe)] Med 11/06/24 14:00 Discontinued 2 mg IV X1 ONE NALOXONE INJ (Vial) [Narcan Inj (Vial)] Med 11/06/24 13:54 Discontinued 1 mg IM X1 ONE NALOXONE INJ (Vial) [Narcan Inj (Vial)] Med 11/06/24 13:56 Discontinued 1 mg IV X1 ONE Ondansetron Inj [Zofran Inj] Med 11/06/24 15:28 Active 4 mg IVP Q4HR PRN Ondansetron Inj [Zofran Inj] Med 11/06/24 13:27 Discontinued 4 mg IVP X1 ONE Oxygen Delivery NOW RT 11/06/24 15:29 Active Vital Signs Vital signs: Vital Signs Temperature 98.8 F 11/06/24 13:40 Pulse Rate 108 H 11/06/24 13:40 Respiratory Rate 14 08/19/25 13:40 Blood Pressure 92/36 L 11/06/24 13:40 Pulse Oximetry (%) 97 11/06/24 13:40 Oxygen Delivery Method Room Air 11/06/24 13:40 Discharge Plan Plan Patient Disposition: [facility] Pt Being Transferred to: [facility] Service Needed for Transfer: Neurosurgery Prescriptions/Referrals Prescriptions/Med Rec: No Action acetaminophen [Tylenol Extra Strength] 500 mg tablet 1,000 mg PO QID PRN (Reason: fever or pain) Qty: 30 0RF Referrals: No Primary/Family,Physician [Primary Care Provider] - In 1 week Problem List Clinical Impression: Altered mental status, CVA (cerebral vascular accident) Patient/Caregiver Discharge Instructions Print Language: Slovenian Stand Alone Forms: Kiana Award Info., Patient Portal Info Letter MDM Narrative MDM hospital course: Patient was seen and evaluated by myself upon arrival. Given the patient's pupils were pinpoint, there was some visible debris in patient's mouth also, and he was very lethargic so she was given 2 mg of Narcan, which did not improve patient's condition. Pending urine drug screen. As patient may possibly be taking benzodiazepines causing his symptoms. 13:22: Head CT came back positive for 10 mm infarct in left cerebellar hemisphere which could be acute. 13:30: Stroke alert was called at this time and initiated. 16:19: Spoke with teleneurology who stated that this time patient was very lethargic and that findings on head CT would not explain patient's lethargy at this time. Only focality that may have been observed by teleneurology was mild right sided weakness. Stated that for now follow-up with head CTA and recommended MRI with and without contrast as well as a one-time dose of aspirin only. Also recommended other metabolic causes for patient's lethargy. Did not recommend thrombolytics at this time as we do not know of the last well-known time. And if patient does have an LVO also recommend the transfer for perfusion studies. 16:35: Head CTA did not show any large vessel occlusion, but did show irregularities involving all cerebral vessels. Numerous segmental areas of narrowing and irregularity involving the M1 segments of the MCA as well as poor filling of the T3 of both posterior cerebral arteries. Will attempt transfer for neurosurgery and need for perfusion studies. 17:35: Spoke with Dr. Howell, neurosurgeon at [facility], stated that at this time we will review the images prior to accepting the patient in the setting of possible neuro ICU required. 17:42 Spoke with teleneurology again, who called back concerning CTA findings and need for MRI/MRA. 17: 51: Patient was accepted at [facility] by Dr. Howell 18:00 Patient noticed to have a RR of 10-12 and dropped to the 8 RR, with minimal Gag reflex therefore decision to intubate prior to transfer was made. Contacted [facility] and made aware of the change in condition, will involve ICU at their facility, but patient will still be accepted at the facility. 18:58: Patient was successfully intubated on the first try and placed on propofol for sedation. Case disclosed with Attending Dr. Risa Sales PGY2 Disclaimer: Even though this this note was dictated by speech recognition and even though it was carefully revised there may still be minor errors in homeland security program specialist due to voice recognition software. Medication Administration(s) Medication Administration History Labetalol HCl (Labetalol Inj 5 Mg/Ml Vial 20 Ml) 10 mg IVP Q15M PRN PRN Reason: HYPER Ondansetron HCl (Ondansetron Inj 2 Mg/Ml Inj 2 Ml) 4 mg IVP Q4HR PRN PRN Reason: NAUSEA OR VOMITING Stop: 12/06/24 15:27 Discontinued Medications Aspirin (Aspirin 300 Mg Supp) 300 mg [place] X1 ONE Stop: 11/06/24 15:29 Last Admin: 11/06/24 16:27 Dose: 300 mg Documented By: CORY Naloxone HCl 1 mg/ Dextrose 499 mls @ 10 mls/hr IV .Q24H POLINA Stop: 12/06/24 13:44 Last Admin: 11/06/24 13:47 Dose: Not Given Documented By: KRISSY Non-Admin Reason: Cancelled by Provider Naloxone HCl 1 mg/ Dextrose 499 mls @ 10 mls/hr IV .Q24H ONE Stop: 11/07/24 13:51 Last Admin: 11/06/24 13:57 Dose: Not Given Documented By: DB Non-Admin Reason: Cancelled by Provider Naloxone HCl 1 mg/ Dextrose 499 mls @ 10 mls/hr IV .Q24H ONE Stop: 11/07/24 13:57 Last Admin: 08/19/25 13:59 Dose: Not Given Documented By: KRISSY Non-Admin Reason: Cancelled by Provider Magnesium Sulfate (Magnesium Sulfate Ivpb) 2 gm in 50 mls @ 25 mls/hr IV X1 ONE Stop: 11/06/24 16:58 Last Admin: 11/06/24 16:26 Dose: 25 mls/hr Documented By: CORY Naloxone HCl (Naloxone Inj 1 Mg/Ml Syringe 2 Ml) 1 mg IV X1 ONE Stop: 11/06/24 13:32 Last Admin: 11/06/24 13:38 Dose: 1 mg Documented By: KRISSY Naloxone HCl (Naloxone Inj 0.4 Mg/Ml Vial) 1 mg IM X1 ONE Stop: 11/06/24 13:55 Last Admin: 11/06/24 13:57 Dose: Not Given Documented By: KRISSY Non-Admin Reason: Cancelled by Provider Naloxone HCl (Naloxone Inj 0.4 Mg/Ml Vial) 1 mg IV X1 ONE Stop: 11/06/24 13:57 Last Admin: 11/06/24 13:59 Dose: Not Given Documented By: KRISSY Non-Admin Reason: Cancelled by Provider Naloxone HCl (Naloxone Inj 1 Mg/Ml Syringe 2 Ml) 2 mg IV X1 ONE Stop: 11/06/24 14:01 Last Admin: 11/06/24 14:07 Dose: 1 mg Documented By: KRISSY Comments: PER DR. MIRELES, ONLY GIVE 1MG Ondansetron HCl (Ondansetron Inj 2 Mg/Ml Inj 2 Ml) 4 mg IVP X1 ONE; Protocol Stop: 11/06/24 13:28 Last Admin: 11/06/24 13:37 Dose: 4 mg Documented By: KRISSY
[2024-11-06] MEDS: ONDANSETRON INJ 2 MG/ML INJ 2 ML 4 MG IVP (13:37)
[2024-11-06] MEDS: NALOXONE INJ 1 MG/ML SYRINGE 2 ML IV (13:38)
--- NOTE | 2024-11-06 13:46 | XR_ITS ---
Examination: CT brain head without contrast. 2-D sagittal coronal reconstructions Date and time of exam:November 06, 2024 1513 hours INDICATIONS: Onset altered mental status today CTDI: vol (mGy):56.2 DLP: (mGycm):1124 Technique: Multiple CT axial sections of the brain have been obtained, 5 mm slice thickness. Contrast has not been administered. 2-D sagittal, coronal reconstructions have been obtained Low dose protocols were performed. One or more of the following dose reduction techniques were used; automated exposure control, adjustment of the mA and/or KV according to patient size, use of iterative reconstruction technique. Findings: No significant ventricular enlargement. 10 mm infarct in the left cerebellar hemisphere, axial image 32, which may be acute Intra-axial or extra-axial hemorrhage density is not seen. No mass effect or midline shift Basal cisterns are not remarkable. Fourth ventricle is midline. Cranial vault intact. Impression: Negative for acute hemorrhage, mass effect or midline shift 10 mm infarct in the left cerebellar hemisphere which may be acute, clinical correlation advised, recommend brain MRI follow-up
[2024-11-06 13:59] LABS: Lactate (Lactic Acid) 2.2 mMol/L (0.4-2.0)
[2024-11-06] MEDS: NALOXONE INJ 1 MG/ML SYRINGE 2 ML 2 MG IV (14:07)
[2024-11-06 14:11] LABS: Basophils # (Auto) 0.0 Thou/mm3 (0.0-0.2); Basophils % (Auto) 0 % (0-2.5); Eosinophils # (Auto) 0.0 Thou/mm3 (0.0-0.5); Eosinophils % (Auto) 0 % (0-10); Hematocrit 38.0 % (41.0-53.0); Hemoglobin 12.2 g/dL (13.5-16.0); Immature Granulocytes Auto 0.03 Thou/mm3 (0.00-0.00); Lymphocytes # (Auto) 1.1 Thou/mm3 (1.0-4.8); Lymphocytes % (Auto) 9 % (10-50); Mean Corpuscular HGB Conc 32.1 g/dl (31.0-37.0); Mean Corpuscular Hemoglobin 26.5 pg (25.0-35.0); Mean Corpuscular Volume 83 fL (80-100); Monocytes # (Auto) 0.6 Thou/mm3 (0.0-0.8); Monocytes % (Auto) 5 % (0-12); Neutrophils # (Auto) 10.5 Thou/mm3 (1.8-7.7); Neutrophils % (Auto) 86 % (37-80); Nucleated Red Blood Cell # 0.00 Thou/mm3 (0.00-0.00); Nucleated Red Blood Cell % 0 /100 WBC (0); Platelet Count 253 Thou/mm3 (140-440); RDW Standard Deviation 42.5 fL (35.1-43.9); Red Blood Count 4.60 Miln/mm3 (4.50-5.90); White Blood Count 12.3 Thou/mm3 (3.8-10.6)
[2024-11-06 14:31] LABS: Alanine Aminotransferase 12 U/L (10-49); Albumin, Serum 4.1 gm/dL (3.5-5.0); Albumin/Globulin Ratio 2.0 (1.2-2.2); Alkaline Phosphatase 45 U/L (46-116); Anion Gap 8 (7-16); Aspartate Amino Transferase 15 U/L (0-34); BUN/Creatinine Ratio 11 Ratio (12-20); Bilirubin,Total 0.6 mg/dL (0.3-1.2); Blood Urea Nitrogen 11 mg/dL (9-23); Calcium 9.6 mg/dL (8.3-10.6); Calcium (Corrected) 9.6 mg/dL (8.5-10.1); Carbon Dioxide 27.2 mMol/L (20.0-31.0); Chloride 108 mMol/L (98-107); Creatinine (Component) 1.0 mg/dL (0.6-1.3); Estimated Creatinine Clearance 137.6 mL/min (>60); Globulin 2.1 gm/dL (2.3-3.5); Glucose 155 mg/dL (74-106); Magnesium 1.5 mg/dL (1.6-2.6); Osmolality,Calculated 287 (275-295); Potassium 4.0 mMol/L (3.4-5.1); Procalcitonin < 0.04 ng/ml (0.0-0.49); Sodium 143 mMol/L (136-145); Total Protein 6.2 gm/dL (5.7-8.2); Troponin I 0.023 ng/mL (0.0-0.045); eGFR > 60 See Note
--- NOTE | 2024-11-06 15:29 | XR_ITS ---
Examination: CTA carotids with intravenous contrast CTA brain, head with intravenous contrast. 2-D sagittal, coronal reconstructions. 3-D reconstructions. Exam date and time: November 06, 2024 1556 hours INDICATIONS: Stroke alert, onset altered mental status today, infarct in the left cerebellar hemisphere on CT brain scan today CTDI: vol (mGy) 56.8 DLP: (mGycm) 486 Technique: Multiple CTA axial brain, head carotid images post intravenous contrast injection 75 cc, [id number]. 2-D sagittal, coronal reconstructions. 3-D reconstructions, 3-D post processing including vascular maximum intensity projection images. Low dose protocols were performed. One or more of the following dose reduction techniques were used; automated exposure control, adjustment of the mA and/or KV according to patient size, use of iterative reconstruction technique. Findings: Overall contrast opacification is reduced No significant common carotid carotid bifurcation or internal carotid artery stenoses Dominant left vertebral artery with no critical vertebral artery stenoses in the neck There is diffuse significant irregularity involving all cerebral vessels, clinical correlation advised The basilar artery is attenuated, the posterior cerebral arteries shows significant irregularity with lack of filling of the T3 segment of the right posterior cerebral artery and very poor filling of the peak 3 segment left posterior cerebral artery There are numerous segmental areas of narrowing and irregularity in the M1 segments of the middle cerebral arteries and poor filling of the middle cerebral artery trifurcation vessels The anterior cerebral vessels also show significant irregularity IMPRESSION: No significant neck arterial stenoses Diffuse significant irregularity involving all cerebral vessels, clinical correlation advised The basilar artery is attenuated, there is poor filling of the T3 segments of both posterior cerebral arteries There are numerous segmental areas of narrowing and irregularity involving the M1 segments middle cerebral arteries and for filling of the middle cerebral artery trifurcation vessels Recommend brain MRI MRA without contrast, stroke protocol follow-up
[2024-11-06 16:15] LABS: Collection Type, Urine Voided
--- NOTE | 2024-11-06 16:18 | PD.TNEURO ---
Tele Neuro Consultation Consultation Date 11/06/24 Most Recent Vital Signs Last Vital Signs Temp 98.4 F 11/06/24 14:58 Pulse 98 11/06/24 14:58 Resp 15 11/06/24 14:58 BP 114/50 L 11/06/24 14:58 Pulse Ox 97 11/06/24 14:58 O2 Del Method Room Air 11/06/24 14:58 Consultation Narrative [facility] Tele[facility]urology Consult Services Patient Name:???NIKKO JAUREGUI Date of :???2000 Date of Service:???11/06/2024 15:32:50 Diagnosis:?I63.89 - Cerebrovascular accident (CVA) due to other mechanism (HCCC) Impression: ?23 yo M with h/o schizophrenia per chart, presenting after being found at homeless [facility] lethargic. On very limited exam he has difficulty maintaining wakefulness; he does seem to have some focality with R arm weaker than L. He will need toxic/metabolic workup for the lethargy including consideration of overdose and UDS. Given the possible focality on exam and small L cerebellar hypodensity on CT, I agree with CTA and he will need admission for further neuroimaging as well, ideally WWO contrast. Mild leukocytosis but no fever and no meningismus, hold off on LP for now. Case discussed with ED Dr. Arboleda by phone. Our recommendations are outlined below. Recommendations: ? Stroke/Telemetry Floor ? Neuro Checks ? Bedside Swallow Eval ? DVT Prophylaxis ? IV Fluids, Normal Saline ? Head of Bed 30 Degrees ? Euglycemia and Avoid Hyperthermia (PRN Acetaminophen) ? Aspirin per rectum x 1 while pending further workup ? Antihypertensives PRN if Blood pressure is greater than 220/120 or there is a concern for End organ damage/contraindications for permissive HTN. If blood pressure is greater than 220/120 give labetalol PO or IV or Vasotec IV with a goal of 15% reduction in BP during the first 24 hours. Sign Out: ? Discussed with Emergency Department Provider Advanced Imaging:Advanced imaging has been ordered. Results pending. Metrics: Last Known Well: Unknown Dispatch Time: 11/06/2024 15:32:50 Arrival Time: 11/06/2024 13:23:00 Initial Response Time: 11/06/2024 15:36:17Symptoms: lethargy. Initial patient interaction: 11/06/2024 15:37:21 NIHSS Assessment Completed: 11/06/2024 15:42:26Patient is not a candidate for Thrombolytic. Thrombolytic Medical Decision: 11/06/2024 15:42:27Patient was not deemed candidate for Thrombolytic because of following reasons: Care-team unable to determine eligibility. . CT Head: I personally reviewed all the CT images that were available to me and it showed: Small L cerebellar hypodensity Primary Provider Notified of Diagnostic Impression and Management Plan on: 11/06/2024 16:15:44 History of Present Illness:Patient is a 23 year old Male. Patient was brought by EMS for symptoms of lethargy. 23 yo M with h/o schizophrenia per chart, presenting with lethargy. LKN unknown. He was found lethargic at a homeless snf and EMS was called. In the ED, he has been intermittently awake. He was able to say that he was recently hospitalized in a psychiatric hospital and was just released, but no other history given. He was given some Narcan. Possibly helped briefly. WBC 12.3. Lactate 2.2. CT head with small L CB infarct, possibly acute. Multiple recent ED visits last month wanting to see mental health. On 09/18/24 he reported he didn't feel well after taking an unknown medication. On 09/20/24 he reported auditory and visual hallucinations. Per chart he has a history of schizophrenia and is nonadherent with medications. ? Past Medical History: Other PMH:? schizophrenia Medications: No Anticoagulant use? No Antiplatelet use Reviewed EMR for current medications Allergies:? Reviewed,NKDA Social History: Unable To Obtain Due To Patient Status :?Patient Is Obtunded/ Comatose Family History: Family History Cannot Be Obtained Because:Patient Is Obtunded/ Comatose ROS :?ROS Cannot Be Obtained Because:? Patient Is Obtunded/ Comatose Past Surgical History: Past Surgical History Cannot Be Obtained Because: Patient Is Obtunded/ Comatose There Is No Surgical History Contributory To Today?s Visit ? Examination: BP(114/50),?Pulse(98),?Blood Glucose(134) 1A: Level of Consciousness - Movements to Pain?+ 2 1B: Ask Month and Age - Could Not Answer Either Question Correctly?+ 2 1C: Blink Eyes & Squeeze Hands - Performs 0 Tasks?+ 2 2: Test Horizontal Extraocular Movements - Normal?+ 0 3: Test Visual Disla - No Visual Loss?+ 0 4: Test Facial Palsy (Use Grimace if Obtunded) - Normal symmetry?+ 0 5A: Test Left Arm Motor Drift - Drift, but doesn't hit bed?+ 1 5B: Test Right Arm Motor Drift - Some Effort Against [place]?+ 2 6A: Test Left Leg Motor Drift - No Effort Against [place]?+ 3 6B: Test Right Leg Motor Drift - No Effort Against [place]?+ 3 7: Test Limb Ataxia (FNF/Heel-Quintana) - No Ataxia?+ 0 8: Test Sensation - Normal; No sensory loss?+ 0 9: Test Language/Aphasia - Mute/Global Aphasia: No Usable Speech/Auditory Comprehension?+ 3 10: Test Dysarthria - Mute/Anarthric?+ 2 11: Test Extinction/Inattention - No abnormality?+ 0 NIHSS Score:?20 NIHSS Free Text : ?No meningismus Pre-Morbid Modified Posey Scale:Unable to assess Spoke with :?Dr. Arboleda This consult was conducted in real time using interactive audio and video technology. Patient was informed of the technology being used for this visit and agreed to proceed. Patient located in hospital and provider located at home/office setting. Patient is being evaluated for possible acute neurologic impairment and high probability of imminent or life-threatening deterioration. I spent total of 45 minutes providing care to this patient, including time for face to face visit via telemedicine, review of medical records, imaging studies and discussion of findings with providers, the patient and/or family. Dr Balbina Lemos [facility] For Inpatient follow-up with [facility] physician please call [facility] at . As we are not an outpatient service for any post hospital discharge needs please contact the hospital for assistance. If you have any questions for the [facility] physicians or need to reconsult for clinical or diagnostic changes please contact us via [facility] at . Signature :?Balbina Lemso ?
[2024-11-06] MEDS: Magnesium Sulfate 2 GM Ivpb 2 GM/50 ML BAG IV (16:26)
[2024-11-06] MEDS: ASPIRIN 300 MG SUPP PR (16:27)
[2024-11-06 16:41] LABS: Alcohol, Urine Negative (Negative)
[2024-11-06 16:45] LABS: Bilirubin,Urine Negative (Negative); Blood,Urine Negative (Negative); Clarity,Urine Clear (Clear/Hazy); Color,Urine Lt-Yellow (Lt Yel-Yel); Glucose, Urine Negative (Negative); Hyaline Casts,Urine < 1 /hpf (0-1); Ketones,Urine Negative (Negative); Leukocyte Esterase,Urine Negative (Negative); Nitrite,Urine Negative (Negative); PH,Urine 7.5 (5.0-7.0); Protein,Urine Trace (Neg - Trace); RBC,Urine 1 /hpf (0-3); Specific Gravity,Urine 1.020 (1.001-1.035); Squamous Epithelial Cell,Urine < 1 /hpf (0-5); Urobilinogen,Urine Negative mg/dL (0.0-1.0); WBC,Urine 2 /hpf (0-5)
[2024-11-06 16:51] LABS: INR 1.1 (0.9-1.3); Partial Thromboplastin Time 24.7 Seconds (22.0-36.0); Prothrombin Time 12.3 Seconds (9.0-12.2)
[2024-11-06 16:58] LABS: Reflex Lactate? Y
--- NOTE | 2024-11-06 17:00 | PC.NURSE ---
Attempted to perfom NIHSS with patient, however he is unable to stay awake long enough to perform required tests. Charted what pt was able to perform but unable to attain NIHSS score
[2024-11-06 17:05] LABS: Base Excess 2 (-3-3); HCO3 27 mEq/L (20-26); Inspired Oxygen, FIO2 21 %; O2 Saturation 99 % (91-98); PCO2 43 mmHg (32.0-48.0); PO2 111 mmHg (83-108); pH, Arterial 7.41 (7.35-7.45)
[2024-11-06 17:10] LABS: Allen Test Not Performed; Puncture Site Right Radial
[2024-11-06 17:29] LABS: Syphilis Nonreactive (Nonreactive)
--- NOTE | 2024-11-06 17:33 | PC.NURSE ---
Rn contacted [facility] at [phone], spoke with Roxana Stein at transfer center made aware of faxed medical record for probable transfer for Neurosurgery services.
--- NOTE | 2024-11-06 17:51 | PC.NURSE ---
[facility] transfer calling back with accepting info, Dr Escobar accepts pt as an er-er transfer, report to be given to number [phone]
[2024-11-06 18:03] LABS: Lactic Acid, 3 HR 0.6 mMol/L (0.4-2.0)
[2024-11-06 18:44] LABS: Amphetamine/Methamp Scrn,U Negative (Negative); Barbiturate Screen,Urine Negative (Negative); Benzodiazepines Screen,Urine Negative (Negative); Benzoylecgonine Screen, Ur Negative (Negative); Fentanyl Screen,Urine Negative (Negative); Opiate Screen,Urine Negative (Negative); THC Screen,Urine Negative (Negative)
[2024-11-06] MEDS: ETOMIDATE INJ 2 MG/ML VIAL 10 ML 40 MG IVP (18:55)
[2024-11-06] MEDS: ROCURONIUM INJ 10 MG/ML VIAL 10 ML 100 MG IV (18:55)
--- NOTE | 2024-11-06 18:59 | XR_ITS ---
Examination: AP chest single view Technique one AP portable supine chest single view Date and time: November 06, 2024, 1902 hours, comparison November 06, 2024 1412 hours INDICATIONS: Hypoxic respiratory failure, postintubation FINDINGS: Endotracheal tube tip 7.7 cm above Nicole. Orogastric tube tip in the stomach satisfactory position. No aspiration pneumonia. Normal heart size IMPRESSION: Endotracheal tube tip 7.8 cm above Nicole No aspiration pneumonia.
[2024-11-06] MEDS: PROPOFOL 1,000 MG IVPB 1,000 MG/100 ML VIAL 2.858 MG IV (19:00)
--- NOTE | 2024-11-06 19:03 | PD.RESPROC ---
PROCEDURES: Procedure Date / Time 11/06/24 18:50 Procedural Time Out Time out performed: yes Intubation Indication(s): other (low RR with minimal gag reflex forseen possible respiratory arrest) Informed consent obtained: procedure done urgently Time out done, and the following verified: correct patient, side and site, procedure, patient position and implants and/or equipment Sedative: etomidate Mg given: 40 Paralytic: rocuronium Mg given: 100 Laryngoscope: fiber optic video scope Assist device used: fiber optic device ET tube size: 7.5 ET tube uncuffed: No Tube secured depth (cm): 23 Tube secured location: teeth Tube placement confirmation: visualized tube passing through cords, equal breath sounds bilaterally, no breath sounds over epigastrium and confirmation by capnometry Patient tolerated procedure: well and no complications EBL(ml): 0 Intubation complications: none Additional comments: A time out was performed. My hands were washed immediately prior to the procedure.The patient was placed on a pre kindergarten teacher including continuous pulse oximetry. Rapid Sequence Intubation was conducted. The patient received 40 mg of etomidate for induction and 100mg of rocuronium for adequate paralysis. Using a fiber optic laryngoscope and a size 7.5 endotracheal tube with stylet, the patient was intubated on the 1st attempt. The stylet was removed and cuff balloon was inflated. Appropriate endotracheal tube position was confirmed by direct visualization of vocal cord passage, fogging of the tube, CO2 colormetric indicator and symmetric breath sounds. The tube was secured at 23 cm at the teeth. Post intubation chest x-ray is pending at this time. Case disclosed with Attending Dr. Andria Sales PGY2 Disclaimer: Even though this this note was dictated by speech recognition and even though it was carefully revised there may still be minor errors in electro mechanical solar technician due to voice recognition software.
--- NOTE | 2024-11-06 19:10 | PC.NURSE ---
BARTOLO FROM [facility] CALLED AND THIS PT IS ACCEPTED BY [place] [id number] WITH A ETA OF 25 MIN.
[2024-11-06] MEDS: PROPOFOL 1,000 MG IVPB 1,000 MG/100 ML VIAL 11.43 MG IV ×2 (19:36→20:03)
[2024-11-06 19:39] LABS: Base Excess 1 (-3-3); HCO3 27 mEq/L (20-26); Inspired Oxygen, FIO2 80 %; O2 Saturation 101 % (91-98); PCO2 47 mmHg (32.0-48.0); PO2 419 mmHg (83-108); pH, Arterial 7.36 (7.35-7.45)
[2024-11-06 19:40] LABS: Allen Test Performed/OK; Puncture Site Right Radial
--- NOTE | 2024-11-06 20:00 | PC.NURSE ---
report given to chris from [facility]
--- NOTE | 2024-11-06 20:23 | PC.NURSE ---
report called to yumiko reyes from [facility] via telephone
== END 2024-11-06 20:15 | disposition short-term general hospital (02) ==
DX: I63.89 Other cerebral infarction (principal); Z59.01 Sheltered homelessness
CPT/HCPCS: 51702; 36415; 36600; 70450; 70496; 70498; 71045; 80053; 80307; 80320; 81001; 82803; 83605; 83735; 84145; 84484; 85025; 85610; 85730; 86780; 87086; 87205; 93005; 94002; 96365; 96366; 96374; 96375; 99284; A4649; J2312; J2405; J2704; J3475; J3490; Q9967; A9270; G0480